=== PATIENT | male | born 1990 | race Caucasian/White ===

== ENCOUNTER 2016-09-13 14:03 | Emergency (ER) | payer SELFPAY ==
[2016-09-13 14:35] VITALS: BP 120/70
--- NOTE | 2016-09-13 15:02 | ED Physician Documentation ---
General Adult - HISTORIAN Historian: patient - HPI Stated Complaint: rapid heart rate yesterday Chief Complaint: General Adult Further Comments: yes (25 year old male patient presents with complaints of anxiety, fast heart rate and palpitations for 4 years. Patient would "like it checked out", denies CP or SOB. Reports increased anxiety. Does not know how to check pulse.) - ROS CONST: no problems EYES/ENT: none CVS/RESP: none GI/: none MS/SKIN/LYMPH: none NEURO/PSYCH: anxiety. denies: headache, fainting, dizziness, tingling, numbness , difficulty walking, difficulty with speech, depression, other - PAST HX Past History: none Other History: none Surgeries/Procedures: none Allergies/Adverse Reactions: Allergies Allergy/AdvReac Type Severity Reaction Status Date / Time No Known Allergies Allergy Verified 09/13/16 14:34 Home Medications: Ambulatory Orders Medication Instructions Recorded NK [NK] 09/13/16 - SOCIAL HX Smoking History: cigarettes - FAMILY HX Family History: No - VITAL SIGNS Vital Signs: Vital Signs Temp Pulse Resp BP Pulse Ox 97.9 F 77 14 120/70 100 09/13/16 14:22 09/13/16 14:22 09/13/16 14:22 09/13/16 14:22 09/13/16 14:22 - REVIEWED ASSESSMENTS Nursing Assessment Reviewed: Yes Vitals Reviewed: Yes Progress - Progress Progress: Patient states he has not seen PCP in > 1 year. Reports experiencing anxiety for > 4 years. States he does not have a PCP and cannot afford health care. List of free clinics provided. Educated patient on how to take pulse. Verbalized understanding. - EKG/XRAY/CT EKG: NSR (no acute changes) ED Results Lab/Radiology - Orders Orders: ED Orders Category Date Time Status EKG WITH COMPARISON Stat Ther 09/13/16 14:59 Ordered General Adult Physical Exam - PHYSICAL EXAM GENERAL APPEARANCE: no distress EENT: eye inspection normal, FORREST RESPIRATORY: no resp distress, chest non-tender, breath sounds normal CVS: reg rate & rhythm, heart sounds normal, equal pulses, no murmur, no gallop , PMI nml, no JVD, no friction rub, 24 ABDOMEN: soft, no organomegaly, normal bowel sounds, no abdominal bruit, no distension SKIN: normal color, warm/dry, NR, INT, PAL, DR EXTREMITIES: non-tender, normal range of motion, no evidence of injury, no edema , J, [employer] OPERATOR NEURO: oriented X3, CN's nml as tested, motor nml, sensation nml, mood/affect nml Discharge Clincal Impression: Anxiety Referrals: Matias Ortiz MD [Primary Care Provider] - 2 Days Home Medications: Ambulatory Orders NK [NK] 09/13/16 Condition: Stable Disposition: HOME, SELF-CARE Decision to Admit: NO Decision Time: 15:23
== END 2016-09-13 15:31 | disposition home or self-care (01) ==
LOC: ED 14:03
DX: F41.9 Anxiety disorder, unspecified (principal)
CPT/HCPCS: 99282; 99283

== ENCOUNTER 2018-01-08 17:31 | Emergency (ER) | payer SELFPAY ==
[2018-01-08 17:42] VITALS: BP 116/83
--- NOTE | 2018-01-08 17:46 | ED Physician Documentation ---
Abdominal Pain - HISTORIAN Historian: patient - HPI Stated Complaint: Acid reflux Chief Complaint: Abdominal Pain Additonal Information: 27yo white male with 5-6 month history of acid reflux. Has been getting wore. Intially just when laying down. Now having problems with even drinking water. Has seen blood in saliva on several occasions. Had some emisis 3days ago and had a nickel size blood spot. Stools have been black looking off and on. Last was two days. Took Zantac for about 4 weeks, two tablets once a day. Recently switched to Prilosec. With eating getting a burning sensation to the throat area. . Onset: other (months ago) Duration: other (off and on, more constant now) Timing: still present Context: denies: out of country travel, bad food Quality: burning Associated Symptoms: nausea, bloody emesis. denies: fever, chills, vomiting, diarrhea, bloody stools, grossly bloody stools - ROS CONST: no problems - SOCIAL HX Smoking History: quit greater than 1 year (1 /), chew (quit 1 month go) Alcohol Use: occasionally (3-5 per day) Drug Use: none - FAMILY HX Family History: no significant history - PAST HX Past History: none Other History: none Surgeries/Procedures: none Immunizations: referred to PCP Home Medications: Ambulatory Orders Medication Instructions Recorded NK [NK] 09/13/16 Allergies/Adverse Reactions: Allergies Allergy/AdvReac Type Severity Reaction Status Date / Time No Known Allergies Allergy Verified 01/08/18 17:42 - VITAL SIGNS Vital Signs: Vital Signs Temp Pulse Resp BP Pulse Ox 98.7 F 71 17 116/83 96 01/08/18 19:00 01/08/18 19:00 01/08/18 19:00 01/08/18 19:00 01/08/18 19:00 - REVIEWED ASSESSMENTS Nursing Assessment Reviewed: Yes Vitals Reviewed: Yes ED Results Lab/Radiology - Lab Results Lab Results: Lab Results 01/08/18 01/08/18 18:07 18:05 WBC 7.40 K/ul K/ul (4.00-12.00) RBC 4.58 M/ul M/ul (3.90-5.20) Hgb 13.6 g/dL g/dL (12.0-18.0) Hct 41.5 % % (37.0-53.0) MCV 90.6 fl fl (80.0-100.0) MCH 29.7 pg pg (28.0-34.0) MCHC 32.8 g/dL g/dL (30.0-36.0) RDW 12.2 % % (11.3-14.3) Plt Count 200 K/mm3 K/mm3 (130-400) Neut % (Auto) 63.8 % % (39.0-79.0) Lymph % (Auto) 23.8 % % (16.0-50.0) [place] % (Auto) 3.5 % % (0.0-11.0) Eos % (Auto) 7.2 % H % (0.0-6.8) Baso % (Auto) 0.3 (0.0-1.5) Neut # (Auto) 4.8 # k/uL # k/uL (1.4-7.7) Lymph # (Auto) 1.8 # k/uL # k/uL (0.6-4.0) [place] # (Auto) 0.3 # k/uL # k/uL (0.0-0.9) Eos # (Auto) 0.5 # k/uL # k/uL (0.0-0.6) Baso # (Auto) 0.0 # k/uL # k/uL (0.0-0.5) Reactive Lymphs % 1.5 % % (0.0-5.0) Reactive Lymphs # 0.1 # k/uL # k/uL (0.0-0.8) Stool Guaiac Test Negative (NEGATIVE) - Orders Orders: ED Orders Category Date Time Status CBC/PLATELET/DIFF Routine Lab 01/08/18 18:05 Completed HEMOCCULT #1 Routine Lab 01/08/18 18:07 Completed Abdominal Pain Physical Exam - Physical Exam General Appearance: alert, mild distress EENT: No: pharyngeal erythema NECK: normal inspection, thyroid normal, supple RESPIRATORY: no resp distress, chest non-tender, breath sounds normal. No: wheezes, rales, rhonchi CVS: reg rate & rhythm, heart sounds normal, equal pulses ABDOMEN: soft, no organomegaly, normal bowel sounds, no abdominal bruit, tenderness (epigastrice area) RECTAL: normal exam, normal rectal tone, heme negative stool. No: black stool, blood streaked stool, heme positive stool BACK: normal inspection SKIN: warm/dry, normal color EXTREMITIES: non-tender, normal range of motion NEURO: oriented X3, mood/affect nml, cognition normal Vital Signs: Vital Signs Temp Pulse Resp BP Pulse Ox 98.7 F 71 17 116/83 96 01/08/18 19:00 01/08/18 19:00 01/08/18 19:00 01/08/18 19:00 01/08/18 19:00 Discharge Clincal Impression: Acid reflux disease Qualifiers: Esophagitis presence: without esophagitis Qualified Code(s): K21.9 - Gastro- esophageal reflux disease without esophagitis Referrals: Primary Doctor,No [Primary Care Provider] - 2 Days Additional Instructions: Avoid caffeine, alcohol, tobacco, spicy foods and chocolate. Elevate that head of your bed 6 inches. Take Prilosec twice a day. If you are still having symptom in two weeks to be followed up with a primary care provider. Watch for sign of significant bleeding as we discussed. Disposition: 01 HOME, SELF-CARE Decision to Admit: NO Date of Decison to Admit: 01/08/18 Decision Time: 18:54
[2018-01-08 18:18] LABS: BASOPHILS % 0.3 (0.0-1.5); EOSINOPHILS % 7.2 % (0.0-6.8); MEAN CORPUSCULAR HEMOGLOBIN 29.7 pg (28.0-34.0); MEAN CORPUSCULAR VOLUME 90.6 fl (80.0-100.0); MONOCYTES % 3.5 % (0.0-11.0); NEUTROPHILS # 4.8 # k/uL (1.4-7.7)
== END 2018-01-08 19:00 | disposition home or self-care (01) ==
LOC: ED 17:31
DX: K21.9 Gastro-esophageal reflux disease without esophagitis (principal)
CPT/HCPCS: 82270; 85025; 99283